=== PATIENT | male | born 1930 | race Caucasian/White ===

== ENCOUNTER 2016-11-11 14:05 | Emergency (ER) | payer OTHER ==
[~2016-11-11] VITALS: Ht 186.7 cm; Wt 74.6 kg
[~2016-11-11 14:05] MED LIST: Aspirin Chewable PO; BAYER CHEWABLE81 MG PO; BETAPACE80 MG PO; Betapace,Sorine PO; CEFTIN500 MG PO; CINNAMON500 MG PO; CO Q-10300 MG PO; COUMADIN3 MG PO; COUMADIN5 MG PO; CRESTOR10 MG PO; Cinnamon Bark PO; Coumadin,Jantoven PO; FISH OIL300 MG PO; Fish Oil PO; GLIPIZIDE10 MG PO; LEVOTHYROXINE100 MCG PO; LOTREL 5/101 CAPSULE PO; Levothroid,Synthroid PO; Lotrel 5/10 PO; NITROSTAT0.4 MG SL; Nitrostat,NitroQuick SL; Ocean Nasal 0.65% NS; THERAGRAN1 TABLET PO; Theragran PO; VITAMIN D5000 UNIT PO; Vitamin D PO; Zocor PO; [UNRECOGNIZED DRUG - CODE] PO
[2016-11-11 15:20] LABS: ADD MIUA? NO; BILIRUBIN NEGATIVE; BLOOD NEGATIVE; COLOR YELLOW ((YELLOW)); GLUCOSE (STRIP) >=500; KETONES NEGATIVE; LEUKOCYTES NEGATIVE; NITRITE NEGATIVE; PROTEIN (STRIP) 30; SPECIFIC GRAVITY 1.012 (1.000-1.030); UCUL ADDED? NO; UROBILINOGEN 0.2 MG/DL (0.2-1.0)
[2016-11-11 15:56] VITALS: BP 146/81
== END 2016-11-11 15:56 | disposition home or self-care (01) ==
LOC: EME 14:05
PROVIDERS: Physician Assistant
DX: K40.20 Bilateral inguinal hernia, without obstruction or gangrene, not specified as recurrent (principal); Z88.1 Allergy status to other antibiotic agents; Z95.1 Presence of aortocoronary bypass graft; Z95.810 Presence of automatic (implantable) cardiac defibrillator; Z95.0 Presence of cardiac pacemaker; Z95.5 Presence of coronary angioplasty implant and graft; I10 Essential (primary) hypertension; I25.2 Old myocardial infarction; E11.9 Type 2 diabetes mellitus without complications; Z79.84 Long term (current) use of oral hypoglycemic drugs; Z87.442 Personal history of urinary calculi; Z79.01 Long term (current) use of anticoagulants
CPT/HCPCS: 81003; 99281; 99283